=== PATIENT | male | born 1945 | race Caucasian/White ===

== ENCOUNTER 2017-12-25 07:07 | Emergency (ER) | payer MEDICARE ==
[2017-12-25 08:08] VITALS: BP 126/68
--- NOTE | 2017-12-25 08:46 | UC ---
UC General HPI - HPI Summary HPI Summary: 72 yo gentleman c/o progressive sinus congestion, swelling, cough over the last week. No fever / chills. No rash. No sob (except with cough). No chest pain. No report GI discomfort. Has been using otc pseudofed (last used yesterday). Also took pcn x 2 doses / day over the weekend (today is ). Sx worsened over the weekend. - History of Current Complaint Chief Complaint: UCGeneralIllness Stated Complaint: CONGESTION Time Seen by Provider: 12/25/17 08:08 Hx Obtained From: Patient Pain Intensity: 0 - Allergy/Home Medications Allergies/Adverse Reactions: Allergies Allergy/AdvReac Type Severity Reaction Status Date / Time No Known Allergies Allergy Verified 12/25/17 08:01 Home Medications: Home Medications Lisinopril TAB* [Prinivil TAB*] 1 tab PO DAILY 12/25/17 [History Confirmed 12/25] Penicillin VK TAB* [Penicillin VK 250 mg Tab*] 1 tab PO DAILY 12/25/17 [History Confirmed 12/25/17] Simvastatin TAB(NF) [Zocor(NF)] 1 tab PO 1700 12/25/17 [History Confirmed ] PMH/Surg Hx/FS Hx/Imm Hx - Surgical History Surgery Procedure, Year, and Place: Hernia. Basal cell carcinoma - Family History Known Family History: Positive: Unknown - Social History Occupation: Retired Alcohol Use: Daily Alcohol Amount: 1-2 rum drinks daily Substance Use Type: None Smoking Status (MU): Former Smoker Review of Systems Constitutional: Negative Skin: Negative Eyes: Negative, Other - see hpi ENT: Other - see hpi Respiratory: Cough Cardiovascular: Negative Gastrointestinal: Negative Genitourinary: Negative Motor: Negative Neurovascular: Negative Musculoskeletal: Negative Neurological: Negative Psychological: Negative Is Patient Immunocompromised?: No All Other Systems Reviewed And Are Negative: Yes Physical Exam Triage Information Reviewed: Yes Appearance: Well-Nourished - sitting up conversing in full sentances Vital Signs: Initial Vital Signs Temp 98.9 F 12/25/17 07:57 Pulse 72 12/25/17 07:57 Resp 18 12/25/17 07:57 BP 126/68 12/25/17 07:57 Pulse Ox 98 12/25/17 07:57 Vital Signs Reviewed: Yes Eye Exam: Normal - normal, a little watery ENT: Positive: Pharyngeal erythema - mild post phar redness, no sores / exudates. C/w cough., TM dull - TM dull, seals au, Other - nares + swollen turbinates. Puffy under both eyes. Subj sinus discomfort. Neck exam: Normal Neck: Positive: Supple, Nontender, No Lymphadenopathy Respiratory Exam: Normal Respiratory: Positive: Chest non-tender, Lungs clear, Normal breath sounds, No respiratory distress, No accessory muscle use Cardiovascular: Positive: No Murmur, Pulses Normal, Brisk Capillary Refill, Murmur:Sys:Grade _?_/ - + syst m (pt states has had most of his life) Abdominal Exam: Normal Abdomen Description: Positive: Nontender Musculoskeletal Exam: Normal - gait steady Musculoskeletal: Positive: Strength Intact Neurological Exam: Normal - grossly nonfocal Psychological Exam: Normal - conversing easily and appropritely NAD Skin Exam: Normal Course/Dx - Course Course Of Treatment: REviewed coa / tx plan. Advised hold off decongestant. Questions as posed answered to the best of my ability. - Differential Dx - Multi-Symptom Provider Diagnoses: Sinusitis acute Discharge - Sign-Out/Discharge Documenting (check all that apply): Discharge/Admit/Transfer - Discharge Plan Condition: Stable Disposition: HOME Prescriptions: Amoxicillin/Clavulanate TAB* [Augmentin TAB 875*] 875 mg PO BID #20 tab Fluticasone NASAL SPRAY 50MCG* [Flonase NASAL SPRAY 50MCG*] 2 spray BOTH NARES DAILY #1 btl Patient Education Materials: Antihistamine (By mouth), Sinusitis (ED), Serous Otitis Media (ED) Referrals: Randy Saenz MD [Primary Care Provider] - - Billing Disposition and Condition Condition: STABLE Disposition: HOME
== END 2017-12-25 08:45 | disposition home or self-care (01) ==
LOC: UCCORT 07:07
DX: J01.90 Acute sinusitis, unspecified (principal); Z87.891 Personal history of nicotine dependence
CPT/HCPCS: 99212; G0463

== ENCOUNTER → 2019-09-10 10:03 | Day surgery (SDC) | payer MEDICARE ==
[~2019-09-10 10:03] MED LIST: Aspirin EC TAB* 81 MG TAB.EC PO SCH; Cyanocobalamin TAB* 500 MCG PO SCH; Diazepam TAB(*) 5 MG ONE; Heparin 2 UNITS/ML IVPREMIX* 2,000 ML IV ONE; Heparin(*) 1000 UNIT/ML 10 ML VIAL CATH LAB IV ONE; Iohexol 350 (CONTRAST) 200 ML MDV IV ONE; LISINOPRIL PO SCH; Lidocaine 1% INJ* 10 MG/ML 30 ML SDV ONE; Midazolam* 1 MG/ML 5 ML VIAL (5 MG) ONE; NS 0.9% 1000 ML** 1,000 ML IV SCH; SILDENAFIL CITRATE 100 MG PO PRN; Simvastatin TAB(NF) 10 MG TAB PO SCH; VERAPAMIL 2.5 MG/ML 2 ML VIAL ** 5 mg/2 ml ONE; diPHENhydraMINE PO* 25 MG ONE; fentaNYL* 50 MCG/ML 2 ML VIAL (100 MCG VIAL) ONE; hydrOXYzine HCL TAB* 10 MG PO PRN; nitroGLYCERIN DRIP* 25,000 MCG/250 ML BTL ONE
[2019-09-10 10:56] LABS: Activated Partial Thrombo Time 33.8 seconds (26.0-38.0); INR 1.03 (0.82-1.09)
--- NOTE | 2019-09-10 14:16 | CATH ---
CC: Dr. Randy Saenz, [place], [place]; Jc Treviño MD, [facility], [place], [place]; Dr. Tommy Rios, [facility], [facility] * CARDIAC CATHETERIZATION REPORT: DATE OF PROCEDURE: 09/10/19 INDICATION FOR THE PROCEDURE: Asked by Dr. Tommy Rios, hoop punch operator helper, assessing the patient for possible TAVR trial, to perform diagnostic coronary arteriography as part of the workup for the trial. The patient with reported critical aortic stenosis. PROCEDURE: Coronary arteriography. CONSENT: The patient was interviewed and examined in the holding area where the risks and benefits were explained. He understood them and wished to proceed. APPROACH UTILIZED: The right radial artery diameter was assessed in the holding area by ultrasound and found to be acceptable for the approach. PRECARDIAC CATHETERIZATION LABORATORY RESULTS: Hemoglobin and hematocrit of 14.8 and 43. White count 4200, platelets 178,000. Sodium 141, potassium 4.4, chloride 104, bicarb 31, INR 1. EQUIPMENT UTILIZED: 1. Right radial artery sheath - a 6-[place]an Glidesheath Slender. 2. Diagnostic coronary catheters - a 5-Rwandan TIG-4 curve catheter for the left coronary artery and a 5-[place] FR-4 curve catheter for the right coronary artery. 3. The diagnostic guidewire utilized was a 260 length Cisneros curved guidewire. 4. The closure device utilized was a regular length Vasc Band. MEDICATIONS GIVEN TO THE PATIENT DURING THE PROCEDURE: The patient received intra- radial artery 3000 units of heparin, 300 mcg of nitroglycerin, and 3 mg of verapamil. 1% lidocaine was used for local anesthesia. 1 mg of Versed was given for relaxation. DESCRIPTION OF PROCEDURE: The patient was brought to the cardiovascular laboratory where a formal time-out was performed. He was prepped and draped in the sterile fashion and under ultrasound guidance, the right radial artery was cannulated and the sheath was placed and the radial artery cocktail was given. Following this, coronary arteriography was performed. At the end of this, the catheter and sheath were removed and hemostasis was obtained with a Vasc Band. The reverse Barbeau was a B. The total contrast used was 40 cc of Omnipaque dye. The radiation exposure included 3.7 minutes of fluoro time. The air kerma was 732 milligray, the DAP radiation was 4108 microgray per meter square. RESULTS: CORONARY ARTERIOGRAPHY: A. Left coronary artery: 1. Left main - widely patent with no significant obstruction seen, somewhat short in nature. 2. Left anterior descending artery - the left anterior descending artery had minimal luminal irregularities, which appeared to be less than 20%. The left anterior descending artery supplied multiple diagonal branches and septal perforators and extended to the apical region. 3. Circumflex artery - a nondominant vessel supplying a thin first obtuse marginal branch followed by moderate second, third and fourth obtuse marginal branches. There was no significant stenosis seen throughout the course of the vessel. B. Right coronary artery - a dominant vessel supplying multiple acute marginal branches as well as the PDA which supplied the proximal portion of the inferior wall and a more proximal acute marginal branch which supplied to distal portion. The right coronary artery continued on to supply 3 posterior left ventricular branches, the second and third of which were small in caliber. There was no significant obstruction seen throughout the course of the vessel with very mild (less than 20%) narrowing noted in the proximal portion. OVERALL ASSESSMENT: No significant stenotic coronary artery disease noted. This information will be shared with the patient's primary hoop punch operator helper, Dr. Jc Treviño in addition to the family physician, Dr. Saenz as well as Dr. Tommy Rios. This information will be utilized by Dr. Rios, who will be in contact with the patient. Of note, the patient will have a wound check by Dr. Henson, my partner , within approximately a week's time to assess the wound site. [id number]/[facility] #: [id number] MTDD
[2019-09-10 15:11] VITALS: BP 122/76
== END | disposition home or self-care (01) ==
LOC: CHICATH 10:03
PROVIDERS: ATTEND Internal Medicine Cardiovascular Disease
DX: I08.3 Combined rheumatic disorders of mitral, aortic and tricuspid valves (principal); R93.1 Abnormal findings on diagnostic imaging of heart and coronary circulation; I10 Essential (primary) hypertension; E78.5 Hyperlipidemia, unspecified; J45.909 Unspecified asthma, uncomplicated; Q21.1 Atrial septal defect
CPT/HCPCS: 36415; 76937; 85610; 85730; 93454; 99156; A9270-GY; J1644; J2250; J3010